=== PATIENT | male | born 1970 | race Caucasian/White ===

== ENCOUNTER → 2021-03-04 | Outpatient (CLI) | payer BC ==
--- NOTE | 2021-03-04 08:42 | FL ---
EXAMINATION TYPE: FL sniff test without CXR DATE OF EXAM: 03/04/2021 COMPARISON: Chest x-ray February 17, [address]. HISTORY: Prior traumatic injury with rib fractures 15 years ago, increasing shortness of breath recen tly. TECHNIQUE: Fluoroscopic assisted sniff test. A total of 30 seconds of fluoroscopic time was utilized during the procedure and 29 spot images was acquired. FINDINGS: Elevated left hemidiaphragm is redemonstrated. There is satisfactory motion of right hemidi aphragm during inspiration and expiration along with quiet and deep breathing and coughing. There is nonmovement or paralyzed left hemidiaphragm confirmed. IMPRESSION: As Above.
--- NOTE | 2021-03-04 10:06 | CT ---
EXAMINATION TYPE: CT chest w con DATE OF EXAM: 03/04/2021 COMPARISON: None HISTORY: Shortness of breath CT DLP: 426.4 mGycm, Automated exposure control for dose reduction was used. CONTRAST: Performed injected with 100 mL of Isovue 300. TECHNIQUE: Axial images were obtained at 5 mm thick sections. Reconstructed images are reviewed on [employer] computer in the coronal plane. FINDINGS: Portion of the thyroid visualized is normal. On [employer] image there is elevation of the left diaphragm. There is a consolidation within the posterior left medial lung base. Air bronchograms are present. Mi nimal infiltrate through the left mid lung base may be present.. These areas are nonspecific. Atelect asis and pneumonia could be considered. No enlarged mediastinal or hilar adenopathy is evident. The ascending aorta diameter at the level o f the main pulmonary artery is 3.4 cm. The main pulmonary artery diameter at the bifurcation is 2.[address] sections are obtained through the upper abdomen. Abdomen is essentially unremarkable. IMPRESSIONS: 1. Elevation of the left diaphragm with infiltrates within the left mid lower lung thompson. Atelectasi s is favored within the differential. Mild pneumonia should be considered. Follow-up is recommended. Underlying lesion cannot be excluded.
== END | disposition home or self-care (01) ==
LOC: RADCTMAIN 07:40
PROVIDERS: ATTEND Internal Medicine
DX: R06.02 Shortness of breath (principal); R91.8 Other nonspecific abnormal finding of lung field
CPT/HCPCS: 76000; 71260; Q9967

== ENCOUNTER 2021-03-24 11:02 | Day surgery (SDC) | payer BC ==
[2021-03-23 10:05] VITALS: BMI 29.1
[~2021-03-24 11:02] MED LIST: ALBUTEROL NEB (CONC) 2.5 MG/0.5 ML INHALATION ONE; LACTATED RINGERS 1,000 ML IV SCH; LIDOCAINE 2% (PF) 20 MG/ML 5 ML VIAL INHALATION ONE; LIDOCAINE VISCOUS 300 MG/15 ML CUP MUCOUS MEM ONE
[2021-03-24 11:24] VITALS: RESP 16; TEMP 98
[2021-03-24] MEDS: LACTATED RINGERS 1,000 ML IV SCH ×2 (11:32→12:29)
[2021-03-24] MEDS ORDERED: KETAMINE 10 MG/ML 20 ML VIAL ONE (12:29)
[2021-03-24] MEDS ORDERED: GLYCOPYRROLATE 0.2 MG/ML 2 ML VIAL ONE (12:29)
[2021-03-24] MEDS ORDERED: fentaNYL (PF) 50 MCG/ML 2 ML AMP ONE (12:29)
[2021-03-24] MEDS ORDERED: PROPOFOL 10 MG/ML 20 ML VIAL IV ONE (12:29)
[2021-03-24] MEDS ORDERED: MIDAZOLAM 2 MG/2 ML VIAL ONE (12:29)
[2021-03-24] MEDS ORDERED: LIDOCAINE 1% INJ 10MG/ML (20 ML MDV) ONE (12:29)
--- NOTE | 2021-03-24 13:08 | P.PCN ---
Date of Procedure: 03/24/21 Preoperative Diagnosis: 1 elevation of the left hemidiaphragm/left hemidiaphragmatic paralysis 2 left lower lobe atelectasis, segmental and subsegmental 3 chronic dyspnea Postoperative Diagnosis: 1 passive atelectasis of the left lower lobe bronchus and the various segments of the left lower lobe. This is due to left hemidiaphragmatic paralysis and secondary atelectasis of the left lower lobe. 2 no evidence of any endobronchial tumor involving the left lower lobe bronchus and the various segments 3 dynamic collapse stability of the upper airway consistent with obstructive sleep apnea. Procedure(s) Performed: 1 flexible bronchoscopy 2 airway inspection Anesthesia: MAC Surgeon: Escobar Santamaria Estimated Blood Loss (ml): 0 Pathology: none sent Condition: stable Disposition: same day Operative Findings: This is a flexible bronchoscopy that was done in the endoscopy suite. Indication for the procedure is atelectasis involving the left lower lobe including segmental and subsegmental branches. Patient was also noted to have left hemidiaphragmatic paralysis. Airway inspection was indicated to rule out any endobronchial tumors in the left lower lobe bronchus. This procedure was done under conscious sedation. Anesthetic agent was administered by anesthesia the bedside. The patient was adequately oxygenating and ventilating on a simple mask. The flexible bronchoscope was inserted through the left nostril was advanced Doppler airway. Immediately, upper airway was noted to be compressible and there was dynamic compressibility of the upper airway at the level of the larynx consistent with obstructive sleep apnea. Airway was identified and upper airway structures were examined in the rest of the laryngeal structures including the epiglottis, vallecula, arytenoids and the vocal cords were all within normal limits. Vocal cord function mobility was als o within normal limits. A total of 2 mL of 1% lidocaine was applied to the vocal cords and following that the bronchoscope was advanced to the upper trachea. Examination of the tracheal bronchus he was on. Trachea was within normal limits. Jessy was sharp in the midline. Examination of the right side including the right upper lobe bronchus, bronchus intermedius, right middle lobe bronchus and right lower lobe bronchus. Note that the right upper lobe bronchus was bifurcated. The various segments of the right lung were examined and there were no abnormalities noted. Following that, bronchoscope was moved to the left. Left mainstem bronchus was patent. Left upper lobe bronchus including the lingular segment and the left apical posterior and anterior segments were patent and within normal limits. The orifice of the left lower lobe bronchus was quite narrowed and probably it was around 30% of his normal caliber. At that point, I was able to pass my bronchoscope through the orifice of the left lower lobe bronchus and force the airway inspection the various segments of the left lower lobe. I was able to visualize the anterior medial, lateral, posterior and superior segments. All of the segments were patent and within normal limits. There are quite atelectatic. There was no mucus or any other abnormalities such as foreign bodies, tumors, polyps or any other lesions inv olving the left lower lobe bronchus and the various segments of the left lower lobe. After completing the airway inspection, the bronchoscope was removed and the procedure was terminated. No bedside complications. The patient tolerated the procedure well. Note oxygen desaturations. Transferred recovery in stable condition Postoperative diagnosis 1 left hemidiaphragmatic paralysis 2 subsegmental and segmental atelectasis of the left lower lobe without evidence of any endobronchial tumors. The airway inspection revealed some atelectasis of the left lower lobe bronchus and this was passive atelectasis due to left hemidiaphragmatic paralysis 3 dynamic obstruction of the upper airway consistent with obstructive sleep apnea
[2021-03-24 13:48] VITALS: BP 139/98; PULSE 83
== END 2021-03-24 14:43 | disposition home or self-care (01) ==
LOC: ORWHC2ENDO 11:02
PROVIDERS: ATTEND Internal Medicine Critical Care Medicine
DX: J98.6 Disorders of diaphragm (principal); J98.11 Atelectasis; R06.09 Other forms of dyspnea; Z87.891 Personal history of nicotine dependence; Z79.899 Other long term (current) drug therapy
CPT/HCPCS: 31622; J2250; J2001; J3010; J2704; 31624